=== PATIENT | male | born 1990 | race Caucasian/White ===

== ENCOUNTER 2017-10-08 12:43 | Emergency (ER) | payer BC ==
[~2017-10-08] VITALS: Ht 180.3 cm; Wt 126.5 kg
[~2017-10-08 12:43] MED LIST: ALLOPURINOL 10100 M1 PO; AMITRIPTYLINE H25 M2 PO; CLONIDINE0.1 PO; COMPAZINE10 MG PO; COZAAR 50 MG TA50 M2 PO; DICLOFENAC SODI75 MG PO; FLUOXETINE HCL40 MG PO; HYDROCHLOROTH12.5 M1 PO; IBUPROFEN 800800 MG PO; NORVASC2.5 MG PO; VALIUM5 MG PO; WELLBUTRIN XL300 MG PO; XANAX1 MG PO; ZOFRAN ODT4 MG PO
[2017-10-08 14:23] LABS: HEMOGLOBIN 15.4 gm/dL (14.0-18.0); MCH 24.4 pg (26.0-34.0); MCHC 32.1 g/dL (28.0-37.0); RBC 6.32 mil/uL (4.50-6.00); RDW-CV 15.3 % (10.5-14.5); WBC 14.6 thou/uL (4.0-11.0)
[2017-10-08 14:30] LABS: CALCIUM 9.6 mg/dL (8.5-10.1); POTASSIUM 3.7 mmol/L (3.5-5.1)
[2017-10-08 14:47] VITALS: BP 163/97
== END 2017-10-08 14:48 | disposition home or self-care (01) ==
LOC: M.ERS 12:43
PROVIDERS: Physician Assistant
DX: R53.81 Other malaise (principal); F41.9 Anxiety disorder, unspecified; I10 Essential (primary) hypertension